=== PATIENT | female | born 1980 | race Caucasian/White ===

== ENCOUNTER 2020-08-24 11:58 | Outpatient (REF) | payer MEDICARE, MEDICAID, SELFPAY ==
--- NOTE | 2020-08-24 12:33 | XR_ITS ---
EXAMINATION: XR LUMBOSACRAL SPINE CLINICAL INFORMATION: Low back pain COMPARISON: None TECHNIQUE: Three views of the lumbosacral spine. FINDINGS: There is curvature of the lower lumbar spine to the left with apex at L4-L5. No fracture or dislocation is seen. There is degenerative disc disease at L4-L5. There is lower lumbar spine facet arthritis. XR/XR lumbar spine 2-3V IMPRESSION: Scoliosis and degenerative change of the lower lumbar spine.
[2020-08-24 14:34] LABS: Cholesterol 166 mg/dL; HDL Cholesterol 77 mg/dL; LDL Cholesterol Calculated 79 mg/dl; Triglycerides 51 mg/dL
[2020-08-25 04:48] LABS: ~HepC Num1 7.09 S/CO (0.00-0.79); ~Hepatitis C Antibody Reactive (Nonreactive)
[2020-08-25 05:00] LABS: HBS Num1 10.03 mIU/mL (0-7.99)
[2020-08-25 05:06] LABS: HBsAGNum1 0.22 S/CO (0.00-0.99); Hepatitis B Surface Antigen Negative (Negative)
[2020-08-25 05:49] LABS: HBS Num2 10.58 mIU/mL (0-7.99); ~Hepatitis B Surface Antibody GRAYZONE (Nonreactive)
[2020-09-30 12:11] LABS: HCV Log PCR <1.18 NOT DETECTED; HepC Viral Load <15 NOT DETECTED
== END 2020-08-24 11:59 | disposition home or self-care (01) ==
LOC: HO.LAB 11:58
PROVIDERS: PCP Nurse Practitioner Family; Visit Provider Nurse Practitioner Family
DX: Z00.00 Encounter for general adult medical examination without abnormal findings (principal); M54.5 Low back pain
CPT/HCPCS: 36415; 72100; 80061; 86706; 86803; 87340; 87522

== ENCOUNTER 2023-02-09 12:40 | Outpatient (REF) | payer MEDICARE, MEDICAID, SELFPAY ==
[2023-02-13 15:39] LABS: HIV RNA PCR Qn Copies 246 copies/mL (NOT DETECTED); HIV RNA PCR Qn Log Copies 2.39 (NOT DETECTED)
== END 2023-02-09 12:41 | disposition home or self-care (01) ==
LOC: HO.HHCL 12:40
PROVIDERS: Visit Provider Internal Medicine
DX: B20 Human immunodeficiency virus [HIV] disease (principal)
CPT/HCPCS: 36415; 87536